=== PATIENT | female | born 1985 | race Caucasian/White ===

== ENCOUNTER 2022-05-17 21:58 | Emergency (ER) | payer MEDICAID ==
[~2022-05-17] VITALS: Ht 152.4 cm; Wt 45.4 kg
[2022-05-17 22:05] VITALS: BP 106/81
[2022-05-17] MEDS ORDERED: LIDOCAINE 5% 1 EA PATCH TP ONE (23:30)
[2022-05-17 23:47] VITALS: BP 106/81
--- NOTE | 2022-05-17 23:47 | NUR ---
Patient discharged with v/s stable. Written and verbal after care instructions given and explained. Patient verbalized understanding. Ambulatory with steady gait. All questions addressed prior to discharge. Advised to follow up with PMD.
== END 2022-05-17 23:47 | disposition home or self-care (01) ==
LOC: MED 21:58
DX: S39.012A Strain of muscle, fascia and tendon of lower back, initial encounter (principal); S16.1XXA Strain of muscle, fascia and tendon at neck level, initial encounter; V49.49XA Driver injured in collision with other motor vehicles in traffic accident, initial encounter; Y93.89 Activity, other specified; Y92.410 Unspecified street and highway as the place of occurrence of the external cause; Y99.8 Other external cause status
CPT/HCPCS: 99282

== ENCOUNTER 2024-02-17 07:16 | Emergency (ER) | payer MEDICAID ==
[~2024-02-17] VITALS: Ht 152.4 cm; Wt 40.9 kg
[2024-02-17 07:32] VITALS: BP 113/76; PULSE 113; RESP 20; TEMP 98.5; O2SAT 98
[2024-02-17] MEDS ORDERED: ONDANSETRON 4 MG/2 ML VIAL IVP ONE (08:05)
[2024-02-17 08:18] VITALS: BP 107/69; PULSE 93; RESP 18; TEMP 98.5; O2SAT 98
[2024-02-17] MEDS: DEXT 5% /NACL 0.9% 1,000 ML IV ONE (08:22)
[2024-02-17] MEDS: PROMETHAZINE 25 MG SUPP RC ONE (08:25)
[2024-02-17 08:47] LABS: BASOPHILS # (AUTO) 0.1 K/uL (0.00-0.22); BASOPHILS % (AUTO) 0.7 % (0.0-2.0); EOSINOPHILS % (AUTO) 0.1 % (0.0-4.0); HEMATOCRIT 38.5 % (36-48); HEMOGLOBIN 13.3 g/dL (12.0-16.0); LYMPHOCYTES # (AUTO) 1.7 K/uL (2.5-16.5); LYMPHOCYTES % (AUTO) 16.2 % (20.5-51.1); MEAN CORPUSCULAR HEMOGLOBIN 32 pg (27-31); MEAN CORPUSCULAR HGB CONC 35 g/dL (33-37); MEAN CORPUSCULAR VOLUME 92.5 fL (80-94); MONOCYTES # (AUTO) 0.3 K/uL (0.8-1.0); MONOCYTES % (AUTO) 3.1 % (1.7-9.3); NEUTROPHILS # (AUTO) 8.6 K/uL (1.8-7.7); NEUTROPHILS % (AUTO) 79.9 % (42.2-75.2); PLATELET COUNT (AUTO) 246 K/uL (140-450); RED BLOOD CELL COUNT(AUTO) 4.16 MIL/uL (4.20-5.40); RED CELL DISTRIBUTION WIDTH 12.4 % (11.6-13.7); WHITE BLOOD COUNT (AUTO) 10.8 K/uL (4.8-10.8)
[2024-02-17] MEDS: diphenhydrAMINE 50 MG/ML VIAL IVP ONE (08:48)
[2024-02-17 09:06] LABS: ALBUMIN 3.7 g/dL (3.4-5.0); BILIRUBIN,DIRECT 0.1 mg/dL (0.0-0.3); PHOSPHORUS 3.5 mg/dL (2.5-4.9); TOTAL BILIRUBIN 0.3 mg/dL (0.0-1.0); TOTAL PROTEIN, SERUM 7.7 g/dL (6.4-8.2)
[2024-02-17 09:11] LABS: ANION GAP 14.6 (8-16); CALCIUM 9.2 mg/dL (8.5-10.1); CARBON DIOXIDE 24.2 mmol/L (21-32); CREATININE 0.5 mg/dL (0.6-1.3); POTASSIUM 3.8 mmol/L (3.5-5.1)
[2024-02-17] MEDS: METOCLOPRAMIDE 10 MG/2 ML INJ VIAL IVP ONE (09:17)
[2024-02-17 09:45] LABS: APPEARANCE,URINE TURBID (CLEAR); BILIRUBIN,URINE NEGATIVE (NEGATIVE); BLOOD, URINE TRACE-L (NEGATIVE); COLOR,URINE YELLOW (YELLOW); LEUKOCYTE ESTERASE ,URINE NEGATIVE (NEGATIVE); NITRITE, URINE NEGATIVE (NEGATIVE); PROTEIN,URINE NEGATIVE (NEGATIVE); UGLUCOSE 3+ (NEGATIVE); UROBILINOGEN,URINE 0.2 EU/dL (0.2 - 1)
[2024-02-17 09:51] LABS: BACTERIA,URINE FEW /HPF (None Seen); SQUAMOUS EPITHELIAL CELL,UR 4-10 (MOD) /LPF (0-3 (FEW)); WBC,URINE 0-5 /HPF (0-5)
== END 2024-02-17 09:44 | disposition left against medical advice (07) ==
LOC: MED 07:16
DX: O21.0 Mild hyperemesis gravidarum (principal); O99.611 Diseases of the digestive system complicating pregnancy, first trimester; R19.7 Diarrhea, unspecified; O26.811 Pregnancy related exhaustion and fatigue, first trimester; R42 Dizziness and giddiness; Z3A.09 9 weeks gestation of pregnancy
CPT/HCPCS: 36415; 80048; 80076; 81001; 81025; 83690; 83735; 84100; 85025; 86900; 86901; 96361; 96374; 96375; 99284; J1200; J2550; J2765; J7030